=== PATIENT | male | born 1975 | race Caucasian/White ===

== ENCOUNTER 2018-02-09 19:25 | Emergency (ER) | payer BC ==
[~2018-02-09] VITALS: Ht 170.2 cm; Wt 86.4 kg
[2018-02-09] MEDS ORDERED: KETOROLAC TROMETHAMINE 60 MG/2 ML VIAL IM ONE (20:45)
[2018-02-09 22:03] VITALS: BP 144/95
== END 2018-02-09 22:32 | disposition home or self-care (01) ==
LOC: EMS 19:26
DX: S80.01XA Contusion of right knee, initial encounter (principal); F17.210 Nicotine dependence, cigarettes, uncomplicated; W10.9XXA Fall (on) (from) unspecified stairs and steps, initial encounter; Y93.89 Activity, other specified; Y92.89 Other specified places as the place of occurrence of the external cause; Y99.8 Other external cause status
CPT/HCPCS: 29505; 73562; 96372; 99284; 99406; J1885